=== PATIENT | female | born 1975 ===

== ENCOUNTER 2020-09-05 12:39 | Emergency (ER) | payer OTHER ==
[2020-09-05] MEDS ORDERED: Diphtheria,Pertussis(Acell),Tetanus Vaccine 0.5 ML Syringe IM ONE (12:56)
--- NOTE | 2020-09-05 13:02 | EDM.PDOC ---
ED HPI GENERAL MEDICAL PROBLEM - General Chief Complaint: Bite:Animal, Insect Stated Complaint: BIT BY DOG Time Seen by Provider: 09/05/20 12:40 Source of Information: Reports: Patient History Limitations: Reports: No Limitations - History of Present Illness INITIAL COMMENTS - FREE TEXT/NARRATIVE: Presents reporting a dog bite. Patient states that she was nipped by a dog in the face this morning at 10 a.m. Law enforcement located the dog and the phlebotomy technologist. The dog's immunizations are up-to-date to July 2020. The patient cannot recall when her last tetanus shot was. She came in only because 2 small lacerations kept oozing. She is otherwise healthy without chronic medical problems except medication controlled essential hypertension. Denies any other injuries. chin Pain Score (Numeric/FACES): 3 - Related Data Allergies Allergy/AdvReac Type Severity Reaction Status Date / Time No Known Allergies Allergy Verified 09/05/20 12:53 Home Meds: Home Meds Amoxicillin/Clavulanate K [Augmentin 875-125 MG] 1 tab PO BID 10 Days #20 tablet 09/05/20 [Rx] Nitrofurantoin [place]/Macrocryst [Nitrofurantoin [place]-MCR] 100 mg PO BID 09/05/20 [History] Valsartan 0 mg PO DAILY 09/05/20 [History] ED ROS GENERAL - Review of Systems Review Of Systems: Comprehensive ROS is negative, except as noted in HPI. ED EXAM, ANIMAL BITE - Physical Exam Exam: See Below Exam Limited By: No Limitations General Appearance: Alert, No Apparent Distress Ears: Normal External Exam Nose: Normal Inspection Throat/Mouth: Normal Inspection, Other (No through and through wounds) Head: Other (One 0.4cm puncture wound and one deminutive star punture on chin. Scant serosanguinous) Respiratory/Chest: No Respiratory Distress, Lungs Clear, Normal Breath Sounds Cardiovascular: Normal Peripheral Pulses, Regular Rate, Rhythm, No Murmur Extremities: Normal Inspection Neurological: Alert, Oriented, Normal Cognition Psychiatric: Normal Affect, Normal Mood Skin Exam: Normal Color, Warm/Dry Course - Vital Signs Last Recorded V/S: Last Vital Signs Temp 35.9 C L 09/05/20 12:47 Pulse 66 09/05/20 12:47 Resp 17 09/05/20 12:47 BP 126/82 09/05/20 12:47 Pulse Ox 98 09/05/20 12:47 Departure - Departure Time of Disposition: 13:07 Disposition: Home, Self-Care 01 Condition: Good Clinical Impression: Dog bite of chin Qualifiers: Encounter type: initial encounter Qualified Code(s): S01.85XA - Open bite of other part of head, initial encounter; W54.0XXA - Bitten by dog, initial encounter - Discharge Information Referrals: Yaneli Harmon MAIL CARRIER [Primary Care Provider] - Additional Instructions: The following information is given to patients seen in the emergency department who are being discharged to home. This information is to outline your options for follow-up care. We provide all patients seen in our emergency department with a follow-up referral. The need for follow-up, as well as the timing and circumstances, are variable depending upon the specifics of your emergency department visit. If you don't have a primary care physician on staff, we will provide you with a referral. We always advise you to contact your personal physician following an emergency department visit to inform them of the circumstance of the visit and for follow-up with them and/or the need for any referrals to a consulting specialist. The emergency department will also refer you to a specialist when appropriate. This referral assures that you have the opportunity for follow-up care with a s pecialist. All of these measure are taken in an effort to provide you with optimal care, which includes your follow-up. Under all circumstances we always encourage you to contact your private physici an who remains a resource for coordinating your care. When calling for follow-up care, please make the office aware that this follow-up is from your recent emergency room visit. If for any reason you are refused follow-up, please contact the [facility] Emergency Department at and asked to speak to the emergency department charge nurse. 1. Your antibiotic twice daily 2. Try not to talk or chew for the next couple of hours. 3. Keep clean and dry, watch for signs of infection: Redness, swelling, purulent discharge report promptly 4. Were given a tetanus, diphtheria and whooping cough vaccine today, please estephanie the date in your medical records Sepsis Event Note (ED) - Evaluation Sepsis Screening Result: No Definite Risk - Focused Exam Vital Signs: Vital Signs Temp Pulse Resp BP Pulse Ox 09/05/20 12:47 35.9 C L 66 17 126/82 98
== END 2020-09-05 13:29 | disposition home or self-care (01) ==
LOC: MW.ED 12:39
DX: S01.85XA Open bite of other part of head, initial encounter (principal); Z23 Encounter for immunization; W54.0XXA Bitten by dog, initial encounter
CPT/HCPCS: 90471; 90715; 99282; 99283

== ENCOUNTER 2021-05-31 08:40 | Emergency (ER) | payer BC, OTHER ==
[2021-05-31] MEDS ORDERED: Alum Hydro/Mag Hydro/Simeth XS 15 ML, Lidocaine 2% 5 ML PO ONE ×2 (08:51)
[2021-05-31] MEDS ORDERED: Aspirin 81 MG Tab.Chew PO ONE (08:51)
--- NOTE | 2021-05-31 09:18 | CR ---
INDICATION: Chest pain, cough and dyspnea COMPARISON: None TECHNIQUE: Single-view portable chest radiograph. FINDINGS: TUBES AND LINES: None. HEART AND MEDIASTINUM: The heart size is normal. The mediastinal contour appears normal for patient age. LUNGS AND PLEURAL SPACES: The lungs appear normal.The pleural spaces are unremarkable. OSSEOUS STRUCTURES: Age-appropriate appearance. No acute focal finding. IMPRESSION: No evidence of active pulmonary disease. Dictated by Mark Jo MD @ 05/31/2021 9:17:37 AM (Electronically Signed)
[2021-05-31 09:30] LABS: BLOOD UREA NITROGEN,BUN 14 mg/dL (7.0-18.0); CARBON DIOXIDE,CO2 26.8 mmol/L (21.0-32.0); CHLORIDE,CL 104 mmol/L (98-107); GLUCOSE RANDOM 96 mg/dL (74-106); POTASSIUM,K 3.3 mmol/L (3.5-5.1); SODIUM,NA 139 mmol/L (136-145)
[2021-05-31] MEDS ORDERED: Potassium Chloride 10% 20 MEQ/15 ML Soln 30 ML UD Cup PO ONE (09:40)
[2021-05-31 09:43] LABS: CORONAVIRUS COVID-19 NAA NEGATIVE (NEGATIVE); INFLUENZA A NAA NEGATIVE (NEGATIVE); INFLUENZA B NAA NEGATIVE (NEGATIVE)
--- NOTE | 2021-05-31 10:40 | PCM.EKG ---
#1 Interpretation EKG Date: 05/31/21 Time: 08:41 Rhythm: NSR Rate (Beats/Min): 69 [place]: Normal P-Wave: Present QRS: Normal ST-T: Normal QT: Normal Comparison: NA - No Prior EKG EKG Interpretation Comments: Sinus Rhythm
--- NOTE | 2021-05-31 11:20 | EDM.PDOC ---
ED HPI GENERAL MEDICAL PROBLEM - General Chief Complaint: Chest Pain Stated Complaint: CHEST PAINS Time Seen by Provider: 05/31/21 08:50 - History of Present Illness INITIAL COMMENTS - FREE TEXT/NARRATIVE: CHIEF COMPLAINT(S): Chest pain HISTORY OF PRESENT ILLNESS: This is a 46-year-old woman with a past medical history of hypertension who comes to the emergency department with a chief complaint of chest pain. The patient states that starting this morning she started to experience chest pain in the center of her chest which she describes as a pressure without any radiation. She states that when this happened she did have some mild diaphoresis and felt like she had some shallow breathing. She denied any nausea but states that she did have some left shoulder discomfort. She currently rates her pain as 4 out of 10. There was no associated vomiting he denies any syncope. She denies any swelling, recent travel, recent surgery or prior history of DVT or PE. She states the pain is not exacerbated by anything. She states that this happened upon awakening from sleep. There are no relieving factors. She has not yet tried anything for the pain. She denies any family history of sudden onset at young age or early onset CAD or CHF. She states that she does have a history of GERD so she tried omeprazole which did not help. She denies any fevers or chills. REVIEW OF SYSTEMS: Constitutional: Denies fever, chills. Eyes: Denies eye pain Ears, Nose, Mouth, & Throat: Denies earache Cardiovascular: Chest pain Respiratory: Positive for shallow breathing. Denies shortness of breath Gastrointestinal: Denies Nausea, vomiting, diarrhea, hematochezia. Genitourinary: Denies hematuria Skin:Denies a rash MSK: Positive for left arm discomfort Neurological: Denies blurred vision, numbness, tingling, weakness Psychiatric: Denies depression PAST MEDICAL HISTORY: As per history of present illness and as reviewed below otherwise noncontributory. SURGICAL HISTORY: As per history of present illness and as reviewed below otherwise noncontributory. SOCIAL HISTORY: As per history of present illness and as reviewed below otherwise noncontributory. FAMILY HISTORY: As per history of present illness and as reviewed below otherwise noncontributory. EXAMINATION OF ORGAN SYSTEMS/BODY AREAS: Constitutional: Blood pressure is 129/84, heart rate 75, respiratory rate 17 with an oxygen saturation 99% on room air. Temperature 36.7 General: Well-appearing woman who is in no acute distress Psychiatric: Appropriate mood and affect. Eyes: No scleral icterus or conjunctival erythema ENMT: Moist mucous membranes. No pharyngeal erythema Cardiovascular: Regular, rate, and rhythm. No gallops, murmurs, or rubs. Bilateral upper extremity pulses symmetric and intact. No peripheral edema. No JVD. Respiratory: Lungs clear to auscultation bilaterally. No wheezes, rales, or rhonchi. Gastrointestinal: Soft, non-tender, non-distended. Normoactive bowel sounds Genitourinary: No suprapubic tenderness Musculoskeletal: Normal range of motion. Skin: No lesions or abrasions. Neurological: Alert, GCS 15 MEDICAL DECISION MAKING AND COURSE IN THE ED WITH INTERPRETATION/REVIEW OF DIAGNOSTIC STUDIES: This is a 46-year-old man with a past medical history of hypertension who comes to the emergency department with acute chest pain who has stable vital signs. At this time given her typical chest pain we will obtain an ACS work-up. Will likely need repeat troponin at 4 hours given her symptoms started less than 4 hours ago. Screening EKG was obtained which did not reveal any acute signs of ischemia. Cardiac monitoring at this time did reveal sinus rhythm and pulse oximetry with good waveform was 99% on room air. Patient was amenable to this plan DDx: ACS, musculoskeletal pain, pneumonia PERC Rule Age (>/=50): No (0) HR (>/=100): No (0) SaO2 on RA <95%: No (0) Unilateral Leg Swelling: No (0) Hemoptysis: No (0) Surgery/Trauma in last month requiring general anesthesia: No (0) Prior PE or DVT: : No (0) Hormone Use: No (0) PERC negative Since patient is PERC negative and pre-test probability <15%, there is no need for more intensive workup, <2% chance of PE Heart Score History: Moderately Suspicious (1) ECG: Normal (0) Age: 45-64 (1) Risk Factors: 1-2 (1) Initial Troponin: </= normal limit (0) Total Score: 3 -> Low Laboratory: CBC is unremarkable. BMP reveals hypokalemia at 3.3 and elevated creatinine of 1.1 otherwise unremarkable. Magnesium is normal. Troponin is negative. Covid and influenza are negative. The radiological images were viewed by myself along with reading the report from the radiologist. Chest x-ray does not reveal any acute cardiopulmonary process. On reevaluation patient reported some improvement in her chest pain. At this time I did discuss that I would like to get a repeat troponin given her symptoms. She was amenable to this plan. Laboratory: Repeat troponin is negative. Given the patient has 2 - troponins and given her age the patient is low risk however given her symptoms I did encourage the patient to follow-up with her primary care physician so that she can be scheduled for outpatient stress test and then follow-up with cardiology. I discussed strict return precautions with the patient. She was amenable to discharge and had no further questions DISPOSITION: The patient was discharged home in stable condition. The patient will follow up with primary care physician and cardiology CONDITION: Fair PROCEDURES: Cardiac monitoring interpretation, pulse oximetry interpretation FINAL IMPRESSION(S)/DIAGNOSES: 1. Acute chest pain Martin Hastings M.D. Middle Chest Pain Score (Numeric/FACES): 4 - Related Data Allergies Allergy/AdvReac Type Severity Reaction Status Date / Time No Known Allergies Allergy Verified 05/31/21 08:41 Home Meds: Home Meds Amoxicillin/Clavulanate K [Augmentin 875-125 MG] 1 tab PO BID 10 Days #20 tablet 09/05/20 [Rx] Nitrofurantoin [place]/Macrocryst [Nitrofurantoin [place]-MCR] 100 mg PO BID 09/05/20 [History] Valsartan 0 mg PO DAILY 09/05/20 [History] Omeprazole 20 mg PO DAILY #30 capsule. 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: - Infectious Disease History Infectious Disease History: Reports: None - Past Surgical History Cardiovascular Surgical History: Reports: None Social & Family History - Family History Family Medical History: No Pertinent Family History - Caffeine Use Caffeine Use: Reports: Coffee ED ROS GENERAL - Review of Systems Review Of Systems: See Below ED EXAM, GENERAL - Physical Exam Exam: See Below Course - Vital Signs Last Recorded V/S: Last Vital Signs Temp 36.7 C 05/31/21 08:41 Pulse 68 05/31/21 11:26 Resp 16 05/31/21 10:59 BP 130/88 05/31/21 11:26 Pulse Ox 99 05/31/21 11:26 - Orders/Labs/Meds Labs: Laboratory Tests 05/31/21 05/31/21 05/31/21 Range/Units 08:45 08:45 08:57 WBC 6.57 (4.0-11.0) K/uL RBC 4.63 (4.30-5.90) M/uL Hgb 13.7 (12.0-16.0) g/dL Hct 40.1 (36.0-46.0) % MCV 86.6 (80.0-98.0) fL MCH 29.6 (27.0-32.0) pg MCHC 34.2 (31.0-37.0) g/dL RDW Std Deviation 40.4 (28.0-62.0) fl RDW Coeff of Glenna 13 (11.0-15.0) % Plt Count 221 (150-400) K/uL MPV 10.60 (7.40-12.00) fL Neut % (Auto) 47.7 L (48.0-80.0) % Lymph % (Auto) 40.3 H (16.0-40.0) % [place] % (Auto) 9.1 (0.0-15.0) % Eos % (Auto) 2.7 (0.0-7.0) % Baso % (Auto) 0.2 (0.0-1.5) % Neut # (Auto) 3.1 (1.4-5.7) K/uL Lymph # (Auto) 2.7 H (0.6-2.4) K/uL [place] # (Auto) 0.6 (0.0-0.8) K/uL Eos # (Auto) 0.2 (0.0-0.7) K/uL Baso # (Auto) 0.0 (0.0-0.1) K/uL Nucleated RBC % 0.0 /100WBC Nucleated RBCs # 0 K/uL Sodium 139 (136-145) mmol/L Potassium 3.3 L (3.5-5.1) mmol/L Chloride 104 (98-107) mmol/L Carbon Dioxide 26.8 (21.0-32.0) mmol/L BUN 14 (7.0-18.0) mg/dL Creatinine 1.1 H (0.6-1.0) mg/dL Est Cr Clr Drug Dosing TNP Estimated GFR (MDRD) 53.5 ml/min Glucose 96 (74-106) mg/dL Calcium 8.8 (8.5-10.1) mg/dL Magnesium 1.9 (1.8-2.4) mg/dL Troponin I < 0.050 (0.000-0.056) ng/mL Influenza Type A RNA NEGATIVE (NEGATIVE) Influenza Type B RNA NEGATIVE (NEGATIVE) SARS-CoV-2 RNA (JAVIER) NEGATIVE (NEGATIVE) 05/31/21 Range/Units 10:11 WBC (4.0-11.0) K/uL RBC (4.30-5.90) M/uL Hgb (12.0-16.0) g/dL Hct (36.0-46.0) % MCV (80.0-98.0) fL MCH (27.0-32.0) pg MCHC (31.0-37.0) g/dL RDW Std Deviation (28.0-62.0) fl RDW Coeff of Glenna (11.0-15.0) % Plt Count (150-400) K/uL MPV (7.40-12.00) fL Neut % (Auto) (48.0-80.0) % Lymph % (Auto) (16.0-40.0) % [place] % (Auto) (0.0-15.0) % Eos % (Auto) (0.0-7.0) % Baso % (Auto) (0.0-1.5) % Neut # (Auto) (1.4-5.7) K/uL Lymph # (Auto) (0.6-2.4) K/uL [place] # (Auto) (0.0-0.8) K/uL Eos # (Auto) (0.0-0.7) K/uL Baso # (Auto) (0.0-0.1) K/uL Nucleated RBC % /100WBC Nucleated RBCs # K/uL Sodium (136-145) mmol/L Potassium (3.5-5.1) mmol/L Chloride (98-107) mmol/L Carbon Dioxide (21.0-32.0) mmol/L BUN (7.0-18.0) mg/dL Creatinine (0.6-1.0) mg/dL Est Cr Clr Drug Dosing Estimated GFR (MDRD) ml/min Glucose (74-106) mg/dL Calcium (8.5-10.1) mg/dL Magnesium (1.8-2.4) mg/dL Troponin I < 0.050 (0.000-0.056) ng/mL Influenza Type A RNA (NEGATIVE) Influenza Type B RNA (NEGATIVE) SARS-CoV-2 RNA (JAVIER) (NEGATIVE) Meds: Medications Discontinued Medications Generic Name Dose Route Start Last Admin Trade Name Freq PRN Reason Stop Dose Admin Aspirin 324 mg 05/31/21 08:51 05/31/21 09:02 Aspirin 81 Mg Tab.Chew PO 05/31/21 08:52 324 mg ONETIME ONE Administration Alum Ludlow/Mag Ludlow/Simeth XS 0 ml 05/31/21 08:51 05/31/21 09:03 15 ml/ Lidocaine HCl 5 ml PO 05/31/21 08:52 15 each ONETIME ONE Administration Potassium Chloride 40 meq 05/31/21 09:40 05/31/21 09:52 Potassium Chloride 10% 20 Meq/15 Ml Soln 30 Ml Ud Cup PO 05/31/21 09:41 40 meq ONETIME ONE Administration Departure - Departure Time of Disposition: 11:20 Disposition: Home, Self-Care 01 Condition: Fair Clinical Impression: Chest pain - Discharge Information *PRESCRIPTION DRUG MONITORING PROGRAM REVIEWED*: No *COPY OF PRESCRIPTION DRUG MONITORING REPORT IN PATIENT MARK: No Prescriptions: Omeprazole 20 mg PO DAILY #30 capsule.dr Instructions: Nonspecific Chest Pain, Adult, [id number], Angina, [id number] Referrals: Verito Beltran PA [Primary Care Provider] - Peyton Croft MD [Physician] - Forms: ED Department Discharge Additional Instructions: Your evaluated today on an emergent basis. At this time all of your work-up was negative. At this time I recommend you continue to take the omeprazole which we did send to your pharmacy ([facility]) . In the interim I would like you to follow- up with your primary care physician to get scheduled for an outpatient stress test and follow-up with cardiology at the soonest appointment. We did place you on the cardiology follow-up list. If you have any worsening symptoms such as worsening chest pain, passing out, shortness of breath I would like you to return to the emergency department. [facility] - [facility] [address] [place] [address] [facility] [address] [place] [address] The patient is informed of any results of their evaluation and diagnostic workup and all questions are answered. They are given discharge instructions and return precautions. The patient is stable for discharge. The patient states they understand and agree with the plan and that they will return if their symptoms get worse or if they have any new concerns. The following information is given to patients seen in the emergency department who are being discharged to home. This information is to outline your options for follow-up care. We provide all patients seen in our emergency department with a follow-up referral. The need for follow-up, as well as the timing and circumstances, are variable depending upon the specifics of your emergency department visit. If you don't have a primary care physician on staff, we will provide you with a referral. We always advise you to contact your personal physician following an emergency department visit to inform them of the circumstance of the visit and for follow-up with them and/or the need for any referrals to a consulting specialist. The emergency department will also refer you to a specialist when appropriate. This referral assures that you have the opportunity for follow-up care with a specialist. All of these measure are taken in an effort to provide you with optimal care, which includes your follow-up. Under all circumstances we always encourage you to contact your private physician who remains a resource for coordinating your care. When calling for follow-up care, please make the office aware that this follow-up is from your recent emergency room visit. If for any reason you are refused follow-up, please contact the [facility] Emergency Department at and asked to speak to the emergency department charge nurse. Sepsis Event Note (ED) - Evaluation Sepsis Screening Result: No Definite Risk
== END 2021-05-31 11:38 | disposition home or self-care (01) ==
LOC: MW.ED 08:40
DX: R07.89 Other chest pain (principal); I10 Essential (primary) hypertension; K21.9 Gastro-esophageal reflux disease without esophagitis; Z79.899 Other long term (current) drug therapy; Z20.822 Contact with and (suspected) exposure to COVID-19
CPT/HCPCS: 0240U; 36415; 71045; 80048; 83735; 84484; 85025; 93005; 99285; A9270